=== PATIENT | female | born 1990 | race Caucasian/White ===

== ENCOUNTER 2020-07-10 12:06 | Emergency (ER) | payer OTHER ==
[~2020-07-10] VITALS: Ht 157.5 cm; Wt 57.2 kg
[~2020-07-10 12:06] MED LIST: CIPRO 500MG TA500 MG PO
[2020-07-10 13:00] LABS: HEMATOCRIT 45.9 % (37.0-47.0); HEMOGLOBIN 14.9 g/dL (12.5-16.0); MEAN CELL VOLUME 82 fl (78-100); MEAN CORPUSCULAR HEMOGLOBIN 27 pg (27-31); MEAN CORPUSCULAR HGB CONC 33 g/dL (33-37); MEAN PLATELET VOLUME 10.1 fl (7.4-10.4); PLATELET COUNT 224 K/mm3 (130-400); RED BLOOD COUNT 5.57 M/mm3 (4.10-5.30); RED CELL DISTRIBUTION WIDTH 14.2 % (11.5-14.5)
[2020-07-10 13:02] LABS: WHITE BLOOD COUNT 23.3 K/mm3 (4.8-10.8)
[2020-07-10 13:08] LABS: ALBUMIN 4.7 g/dL (3.5-5.0)
[2020-07-10 13:09] LABS: POTASSIUM 3.8 mmol/L (3.5-5.1)
[2020-07-10 13:10] LABS: CALCIUM 9.6 mg/dL (8.3-10.5)
[2020-07-10 13:11] LABS: TOTAL PROTEIN 8.9 g/dL (6.4-8.3)
[2020-07-10 13:13] LABS: TOTAL BILIRUBIN 0.6 mg/dL (0.2-1.2)
[2020-07-10 13:28] LABS: STREP SCREEN NEGATIVE (NEGATIVE)
[2020-07-10 13:30] LABS: LYMPHOCYTE 6 % (20-51); MONOCYTE 8 % (3-10); NEUTROPHILS 86 % (42-75)
[2020-07-10 13:47] LABS: D-DIMER 1.63 mg/L FEU (0.15-0.50)
[2020-07-10 14:57] LABS: URINE APPEARANCE CLOUDY; URINE BILIRUBIN NEGATIVE (NEGATIVE); URINE COLOR DARK YELLOW; URINE GLUCOSE NEGATIVE (NEGATIVE); URINE KETONE 1+ (NEGATIVE); URINE PROTEIN(semi-quant) 2+ mg/dL (NEGATIVE)
[2020-07-10 14:58] LABS: URINE BLOOD TRACE (NEGATIVE); URINE LEUKOCYTE ESTERASE NEGATIVE (NEGATIVE); URINE NITRATE NEGATIVE (NEGATIVE); URINE UROBILINOGEN NORMAL (NORMAL)
[2020-07-10 14:59] LABS: URINE MUCUS PRESENT (NOT PRESENT)
[2020-07-10] MEDS ORDERED: AUGMENTIN 875-1 EAC1 PO (16:42)
[2020-07-10 17:15] VITALS: BP 91/59
== END 2020-07-10 17:21 | disposition left against medical advice (07) ==
LOC: ED 12:06
PROVIDERS: Nurse Practitioner Family
DX: R05 Cough (principal); J03.90 Acute tonsillitis, unspecified; A41.9 Sepsis, unspecified organism; R53.81 Other malaise; F17.200 Nicotine dependence, unspecified, uncomplicated; Z20.828 Contact with and (suspected) exposure to other viral communicable diseases; Z32.02 Encounter for pregnancy test, result negative; Z79.2 Long term (current) use of antibiotics
CPT/HCPCS: J1100; J2543; J7030; Q9967

== ENCOUNTER 2021-11-11 22:21 | Emergency (ER) | payer OTHER ==
[~2021-11-11] VITALS: Ht 160 cm; Wt 68.2 kg
[~2021-11-11 22:21] MED LIST changes: +AUGMENTIN 875-1 EAC1 PO
[2021-11-11 23:40] VITALS: BP 95/64
== END 2021-11-11 23:40 | disposition home or self-care (01) ==
LOC: ED 22:21
DX: U07.1 COVID-19 (principal); F17.210 Nicotine dependence, cigarettes, uncomplicated; Z91.040 Latex allergy status

== ENCOUNTER 2022-04-30 03:25 | Emergency (ER) | payer BC, OTHER ==
[~2022-04-30] VITALS: Ht 157.5 cm; Wt 65.8 kg
[2022-04-30] MEDS ORDERED: IUD (03:39)
[2022-04-30] MEDS ORDERED: PREMIERPRO RX5 MG/GM OD (03:55)
[2022-04-30 04:20] VITALS: BP 124/78
== END 2022-04-30 04:20 | disposition home or self-care (01) ==
LOC: ED 03:25
DX: S05.01XA Injury of conjunctiva and corneal abrasion without foreign body, right eye, initial encounter (principal); Z91.040 Latex allergy status; Z28.310 Unvaccinated for COVID-19; X58.XXXA Exposure to other specified factors, initial encounter; Y93.11 Activity, swimming

== ENCOUNTER → 2022-09-01 | Outpatient (CLI) | payer BC, OTHER ==
[~2022-09-01] MED LIST changes: +IUD; +PREMIERPRO RX5 MG/GM OD
[2022-09-01 14:16] LABS: CLUE CELLS PRESENT (Not Observd)
== END ==
LOC: LAB 13:52
PROVIDERS: Nurse Practitioner Family
DX: A60.9 Anogenital herpesviral infection, unspecified (principal); M54.50 Low back pain, unspecified; Z20.2 Contact with and (suspected) exposure to infections with a predominantly sexual mode of transmission
CPT/HCPCS: Q0111